=== PATIENT | female | born 1955 | race Caucasian/White ===

== ENCOUNTER → 2017-02-03 | Outpatient (CLI) | payer BC | END | disposition home or self-care (01) | LOC: CFH 09:40 → EDSTATUS 10:00 | PROVIDERS: ATTEND Nurse Practitioner Family | DX: Z13.820 Encounter for screening for osteoporosis (principal); N95.9 Unspecified menopausal and perimenopausal disorder | CPT/HCPCS: 77080 ==

== ENCOUNTER → 2018-03-11 | Outpatient (CLI) | payer BC ==
[~2018-03-11] MED LIST: LIDOCAINE-MPF 1%, 5ML ONE
== END | disposition home or self-care (01) ==
LOC: RAD 10:59
PROVIDERS: ATTEND Nurse Practitioner Family
DX: C96.9 Malignant neoplasm of lymphoid, hematopoietic and related tissue, unspecified (principal)
CPT/HCPCS: 38505; 76942; 88305; 88341; 88342

== ENCOUNTER → 2018-03-14 | Outpatient (CLI) | payer BC | END | disposition home or self-care (01) | LOC: RAD 12:42 | PROVIDERS: ATTEND Emergency Medicine | DX: I82.443 Acute embolism and thrombosis of tibial vein, bilateral (principal) | CPT/HCPCS: 93970 ==

== ENCOUNTER 2018-04-01 09:58 | Outpatient (CLI) | payer BC ==
[2018-04-01] MEDS ORDERED: OMNIPAQUE 350 MG/ML, 75ML BOTTLE ONE (13:00)
== END 2018-04-01 23:59 | disposition home or self-care (01) ==
LOC: RAD 09:58
PROVIDERS: ATTEND Nurse Practitioner Family
DX: I26.99 Other pulmonary embolism without acute cor pulmonale (principal); J98.11 Atelectasis; J90 Pleural effusion, not elsewhere classified; R59.1 Generalized enlarged lymph nodes; J18.1 Lobar pneumonia, unspecified organism
CPT/HCPCS: 71260; Q9967

== ENCOUNTER → 2018-04-01 | Outpatient (CLI) | payer BC ==
[~2018-04-01] MED LIST changes: -LIDOCAINE-MPF 1%, 5ML ONE; +OMNIPAQUE 350 MG/ML, 150 ML BOTTLE ONE
== END | disposition home or self-care (01) ==
LOC: RAD 09:59
PROVIDERS: ATTEND Nurse Practitioner Family
DX: M47.812 Spondylosis without myelopathy or radiculopathy, cervical region (principal); R59.1 Generalized enlarged lymph nodes; C79.9 Secondary malignant neoplasm of unspecified site; M50.30 Other cervical disc degeneration, unspecified cervical region
CPT/HCPCS: 70491; Q9967

== ENCOUNTER 2018-04-07 07:39 | Outpatient (CLI) | payer BC ==
[2018-04-07] MEDS ORDERED: [UNRECOGNIZED DRUG - REMARK] (14:25)
== END 2018-04-07 23:59 | disposition home or self-care (01) ==
LOC: ROC 07:39
PROVIDERS: ATTEND Radiology Radiation Oncology
DX: C10.9 Malignant neoplasm of oropharynx, unspecified (principal)
CPT/HCPCS: 99214; G0463

== ENCOUNTER 2018-04-07 12:02 | Inpatient (IN) | payer BC ==
[~2018-04-07] VITALS: Ht 157.5 cm; Wt 55.3 kg
[~2018-04-07 12:02] MED LIST changes: -OMNIPAQUE 350 MG/ML, 150 ML BOTTLE ONE; +RIVAROXABAN 20 MG TABLET PO SCH
[2018-04-07 12:41] VITALS: BP 122/72
[2018-04-07] MEDS ORDERED: [UNRECOGNIZED DRUG - REMARK] (14:25)
[2018-04-07] MEDS ORDERED: DOCUSATE 100 MG CAPSULE PO PRN (14:30)
[2018-04-07] MEDS ORDERED: hydrALAzine 20 MG/ML, 1ML IVPush PRN (14:30)
[2018-04-07] MEDS ORDERED: HEPARIN 5,000 UNITS/ML, 1ML IV ONE (15:30)
[2018-04-07] MEDS ORDERED: ALBUTEROL/IPRATROPIUM 2.5MG/0.5MG, 3 ML HHN PRN (15:30)
[2018-04-07] MEDS ORDERED: DO NOT GIVE XX ONE (15:30)
[2018-04-07] MEDS ORDERED: HEPARIN 5,000 UNITS/ML, 1ML IV PRN (15:30)
[2018-04-07] MEDS ORDERED: HEPARIN 25,000 UNITS/500ML PMX 500 ML IV PRN ×3 (15:30)
[2018-04-07 15:40] LABS: MEAN CORPUSCULAR HEMOGLOBIN 27.8 pg (27.0-34.8); MEAN CORPUSCULAR HGB CONC 32.6 g/dL (32.4-35.8); MEAN CORPUSCULAR VOLUME 85.4 fL (80-100); MEAN PLATELET VOLUME 6.5 fL (7.4-10.4); PLATELET COUNT 478 x10^3/uL (130-400); RED BLOOD COUNT 4.16 x10^6/uL (3.82-5.3); RED CELL DISTRIBUTION WIDTH 14.5 % (9.6-15.2)
[2018-04-07 15:48] LABS: ALBUMIN 1.9 g/dL (3.4-5.0); ANION GAP 8 mmol/L (5-15); CALCIUM 8.6 mg/dL (8.5-10.1); CHLORIDE 95 mmol/L (98-107); CREATININE 0.51 mg/dL (0.55-1.02)
[2018-04-07 16:04] LABS: MD YES
[2018-04-07 16:06] LABS: ANISOCYTOSIS 1+; BAND#(MANUAL) 0.75 x10^3/uL; BANDS%(MANUAL) 6 % (0-7); EOS#(MANUAL) 0.25 x10^3/uL (0.0-0.4); EOS% (MANUAL) 2 % (1-7); LYMPH#(MANUAL) 0.88 x10^3/uL (1-3.4); LYMPHS% (MANUAL) 7 % (22-44); MONOS#(MANUAL) 0.75 x10^3/uL (0.3-2.7); MONOS% (MANUAL) 6 % (2-9); SEG#(MANUAL) 9.88 x10^3/uL (1.8-6.8); SEGS% (MANUAL) 79 % (42-75)
[2018-04-07 16:07] LABS: <PLATELET ESTIMATE> INCREASED; <PLT MORPHOLOGY> NORMAL PLT MORPH
[2018-04-07] MEDS ORDERED: PHARMACY INSTRUCTION MC PRN (16:30)
[2018-04-07 20:16] VITALS: BP 102/70
[2018-04-08 02:23] VITALS: BP 99/61
[2018-04-08 06:06] LABS: BASOPHILS # (AUTO) 0.03 x10^3/uL (0-0.1); BASOPHILS % (AUTO) 0 % (0-1); EOSINOPHILS # (AUTO) 0.18 x10^3/uL (0-0.4); EOSINOPHILS % (AUTO) 2 % (1-7); LYMPHOCYTES # (AUTO) 0.78 x10^3/uL (1-3.4); LYMPHOCYTES % (AUTO) 7 % (22-44); MD NO; MEAN CORPUSCULAR HEMOGLOBIN 28.3 pg (27.0-34.8); MEAN CORPUSCULAR HGB CONC 33.4 g/dL (32.4-35.8); MEAN CORPUSCULAR VOLUME 84.7 fL (80-100); MEAN PLATELET VOLUME 6.5 fL (7.4-10.4); MONOCYTES % (AUTO) 11 % (2-9); NEUTROPHILS # (AUTO) 8.81 x10^3/uL (1.8-6.8); NEUTROPHILS % (AUTO) 80 % (42-75); PLATELET COUNT 423 x10^3/uL (130-400); RED BLOOD COUNT 3.84 x10^6/uL (3.82-5.3); RED CELL DISTRIBUTION WIDTH 14.6 % (9.6-15.2)
[2018-04-08 06:14] LABS: ANION GAP 7 mmol/L (5-15); CALCIUM 8.3 mg/dL (8.5-10.1); CHLORIDE 96 mmol/L (98-107); CREATININE 0.41 mg/dL (0.55-1.02); INTERNATIONAL NORMALIZED RATIO 1.18 (0.93-1.1); PROTHROMBIN TIME 12.4 Seconds (9.6-11.5)
[2018-04-08] MEDS ORDERED: FENTANYL PF 250 MCG/5ML ONE (07:06)
[2018-04-08] MEDS ORDERED: PROPOFOL 50 ML ONE (07:06)
[2018-04-08] MEDS ORDERED: ONDANSETRON 2MG/ML, 2ML ONE (07:41)
[2018-04-08] MEDS ORDERED: ROCURONIUM 10 MG/ML,10ML ONE (07:41)
[2018-04-08] MEDS ORDERED: SUCCINYLCHOLINE 20 MG/ML, 10ML ONE (07:41)
[2018-04-08] MEDS ORDERED: PROPOFOL 10 MG/ML, 50ML ONE (07:41)
[2018-04-08 07:45] VITALS: BP 113/67
[2018-04-08] MEDS ORDERED: EPHEDRINE 50 MG/ML, 1ML IVPush PRN (09:00)
[2018-04-08] MEDS ORDERED: DIPHENHYDRAMINE 50 MG/ML, 1ML IVPush PRN (09:00)
[2018-04-08] MEDS ORDERED: EPHEDRINE 50 MG/ML, 1ML IM PRN (09:00)
[2018-04-08] MEDS ORDERED: MORPHINE SULFATE 4 MG/ML, 1ML IVPush PRN (09:00)
[2018-04-08] MEDS ORDERED: ALBUTEROL SULFATE 2.5 MG/3 ML NPPB PRN (09:00)
[2018-04-08] MEDS ORDERED: PROMETHAZINE 12.5 MG SUPP PR PRN (09:00)
[2018-04-08] MEDS ORDERED: FENTANYL PF 100 MCG/2ML IV PRN (09:00)
[2018-04-08] MEDS ORDERED: MIDAZOLAM 1 MG/ML, 2ML IV PRN (09:00)
[2018-04-08] MEDS ORDERED: PROMETHAZINE 25 MG SUPP PR PRN (09:00)
[2018-04-08] MEDS ORDERED: PROMETHAZINE 25 MG/ML, 1ML IV PRN (09:00)
[2018-04-08] MEDS ORDERED: ONDANSETRON ODT 8 MG PO PRN (09:00)
[2018-04-08] MEDS ORDERED: ONDANSETRON 2MG/ML, 2ML IV PRN (09:00)
[2018-04-08] MEDS ORDERED: OXYcodone 5 MG/5 ML ORAL.SOL UDC PO PRN (09:00)
[2018-04-08 09:45] VITALS: BP 98/61
[2018-04-08] MEDS ORDERED: HEPARIN 25,000 UNITS/500ML PMX 500 ML IV PRN ×2 (10:30→14:30)
[2018-04-08 14:00] VITALS: BP 95/60
[2018-04-08 19:31] VITALS: BP 120/75
[2018-04-09 01:13] VITALS: BP 109/75
[2018-04-09 07:10] VITALS: BP 104/69
[2018-04-09 10:31] LABS: BASOPHILS # (AUTO) 0.02 x10^3/uL (0-0.1); BASOPHILS % (AUTO) 0 % (0-1); EOSINOPHILS # (AUTO) 0.13 x10^3/uL (0-0.4); EOSINOPHILS % (AUTO) 1 % (1-7); LYMPHOCYTES # (AUTO) 1.07 x10^3/uL (1-3.4); LYMPHOCYTES % (AUTO) 10 % (22-44); MD NO; MEAN CORPUSCULAR HGB CONC 32.8 g/dL (32.4-35.8); MEAN CORPUSCULAR VOLUME 85.5 fL (80-100); MONOCYTES # (AUTO) 1.26 x10^3/uL (0.2-0.8); MONOCYTES % (AUTO) 11 % (2-9); NEUTROPHILS % (AUTO) 78 % (42-75); PLATELET COUNT 483 x10^3/uL (130-400); RED BLOOD COUNT 3.96 x10^6/uL (3.82-5.3); RED CELL DISTRIBUTION WIDTH 14.6 % (9.6-15.2)
[2018-04-09 13:50] VITALS: BP 120/61
[2018-04-09] MEDS ORDERED: RIVAROXABAN 15 MG TABLET PO SCH (18:00)
[2018-04-09] MEDS ORDERED: RIVA15TA PO (18:03)
[2018-04-09] MEDS ORDERED: DOCU-131 PO (18:03)
[2018-04-09] MEDS ORDERED: HYDR-3241 PO (18:03)
== END 2018-04-09 19:40 | disposition home or self-care (01) | DRG 166 ==
LOC: 3NW 12:10 → INTOOBSV 12:10 → OBSVTOIN 15:18
PROVIDERS: ADMIT Hospitalist; ATTEND Internal Medicine
PROC: 07B74ZX Excision of Thorax Lymphatic, Percutaneous Endoscopic Approach, Diagnostic (ICD-10-PCS; 2018-04-08)
PROC: 0BBC8ZX Excision of Right Upper Lung Lobe, Via Natural or Artificial Opening Endoscopic, Diagnostic (ICD-10-PCS; principal; 2018-04-08 07:30)
DX: I26.99 Other pulmonary embolism without acute cor pulmonale (principal); J96.20 Acute and chronic respiratory failure, unspecified whether with hypoxia or hypercapnia; D68.69 Other thrombophilia; J98.11 Atelectasis; J98.19 Other pulmonary collapse; C79.89 Secondary malignant neoplasm of other specified sites; I82.412 Acute embolism and thrombosis of left femoral vein; I82.432 Acute embolism and thrombosis of left popliteal vein; E78.5 Hyperlipidemia, unspecified; F17.210 Nicotine dependence, cigarettes, uncomplicated; C76.0 Malignant neoplasm of head, face and neck; R91.8 Other nonspecific abnormal finding of lung field; Z82.5 Family history of asthma and other chronic lower respiratory diseases; Z86.72 Personal history of thrombophlebitis; Z87.01 Personal history of pneumonia (recurrent); Z90.710 Acquired absence of both cervix and uterus; Z90.49 Acquired absence of other specified parts of digestive tract
CPT/HCPCS: 31625; 36415; 80048; 82040; 85025; 85520; 85610; 85730; 88172; 88173; 88305; 93005; 93970; G0378; J1644; J2405; J2704; J3010; J0330

== ENCOUNTER → 2018-04-14 | Outpatient (CLI) | payer BC ==
[~2018-04-14] MED LIST changes: +DOCU-131 PO; +HYDR-3241 PO; +RIVA15TA PO; -RIVAROXABAN 20 MG TABLET PO SCH; +[UNRECOGNIZED DRUG - REMARK]
== END | disposition home or self-care (01) ==
LOC: PETCFH 08:51
PROVIDERS: ATTEND Radiology Radiation Oncology
DX: C09.9 Malignant neoplasm of tonsil, unspecified (principal); C79.51 Secondary malignant neoplasm of bone; J98.19 Other pulmonary collapse; J90 Pleural effusion, not elsewhere classified
CPT/HCPCS: 78815; A9552

== ENCOUNTER 2018-04-15 08:16 | Outpatient (CLI) | payer BC | END 2018-04-15 23:59 | disposition home or self-care (01) | LOC: ROC 08:16 | PROVIDERS: ATTEND Radiology Radiation Oncology | DX: Z09 Encounter for follow-up examination after completed treatment for conditions other than malignant neoplasm (principal); C76.0 Malignant neoplasm of head, face and neck | CPT/HCPCS: 99213; G0463 ==